=== PATIENT | female | born 1955 | race Caucasian/White ===

== ENCOUNTER 2018-01-29 07:42 | Day surgery (SDC) | payer OTHER, SELFPAY ==
--- NOTE | 2018-01-29 07:42 | DT_ITS ---
This patient was seen during an EMR downtime January 27, 2018 - February 03, 2018. This patient may have a combination of paper and electronic documentation or all paper documentation. All documentation is viewable within the e-chart portion of [facility] for each patient visit.
== END 2018-01-29 09:57 | disposition home or self-care (01) ==
LOC: EN 01-30 11:34
PROVIDERS: Family Provider Family Medicine; PCP Family Medicine; Visit Provider Surgery
PROC: 0DJD8ZZ Inspection of Lower Intestinal Tract, Via Natural or Artificial Opening Endoscopic (ICD-10-PCS; CPT 45378; principal; 2018-01-29 08:55)
DX: Z12.11 Encounter for screening for malignant neoplasm of colon (principal); F41.9 Anxiety disorder, unspecified; F17.200 Nicotine dependence, unspecified, uncomplicated; Z86.010 Personal history of colon polyps; Z79.82 Long term (current) use of aspirin; Z79.899 Other long term (current) drug therapy
CPT/HCPCS: 45378; J7120; J1610

== ENCOUNTER → 2019-05-14 10:45 | Outpatient (CLI) | payer OTHER, SELFPAY ==
--- NOTE | 2019-05-14 11:01 | EKG12_ITS ---
Test Reason : PREOP Blood Pressure : / mmHG Vent. Rate : 061 BPM Atrial Rate : 061 BPM P-R Int : 140 ms QRS Dur : 068 ms QT Int : 372 ms P-R-T Axes : 070 003 054 degrees QTc Int : 374 ms Normal sinus rhythm Low voltage QRS Borderline ECG Confirmed by PASTORA AMARO, HIMANSHU ([id number]), science editor KINGS SANTOS ([id number]) on 05/15/2019 1:28:00 PM Referred By: Vamsi Glass Confirmed By:HIMANSHU GUILLORY MD
[2019-05-14 11:23] LABS: Anion Gap 4 (5-15); BUN 10 mg/dL (7-18); BUN/Creat Ratio 11.2 RATIO (10-20); Calcium,Total 8.5 mg/dL (8.5-10.1); Chloride 109 mmol/L (98-107); Creatinine, Serum 0.89 mg/dL (0.55-1.02); EST Glomerular Filtration Rate 68 mL/min (>60); Est Glom Filt Rate - Afr Amer 82 mL/min (>60); Glucose 134 mg/dL (74-106); Potassium 3.9 mmol/L (3.5-5.1); Sodium Level 142 mmol/L (136-145)
== END ==
PROVIDERS: Family Provider Family Medicine; PCP Family Medicine; Referring Provider Otolaryngology Otolaryngology/Facial Plastic Surgery; Visit Provider Otolaryngology Otolaryngology/Facial Plastic Surgery
DX: Z01.818 Encounter for other preprocedural examination (principal)
CPT/HCPCS: 36415; 80048; 93005

== ENCOUNTER 2021-09-05 12:25 | Day surgery (SDC) | payer BC, SELFPAY ==
--- NOTE | 2021-09-03 16:54 | HP.PCM_ITS ---
History and Physical Date of Admission: 09/05/21 HISTORY AND PHYSICAL [employer] 1955 REFERRING PHYSICIAN: Lorraine White MD ? CHIEF COMPLAINT: Consult (port consultation) ? HPI: The patient is a 65 year old female is referred for consideration of placement of portacath. She has right breast cancer s/p right breast lumpectomy and she will require IV chemotherapy. She will require portacath for this. ? PAST MEDICAL HISTORY Anxiety ? Benign neoplasm of colon ? Cervical strain ? COPD (chronic obstructive pulmonary disease) (HCC) 04/21/2021 Diverticulitis of colon (without mention of hemorrhage)(562.11) ? History of colonoscopy with polypectomy 12/21/2014 tubular adenoma Hyperlipidemia LDL goal <100 12/24/2015 Impaired fasting glucose ? Invasive ductal carcinoma of breast, female, right (HCC) 05/18/2021 Marijuana use ? Shingles 2017 Statin intolerance 12/24/2015 Tobacco use disorder ? PAST SURGICAL HISTORY BREAST LUMPECTOMY HX Right 07/17/2021 BX OF BREAST; INCISIONAL Right 05/18/2021 COLONOSCOP W/ OR W/O BRSH SPEC ? 08/08/2011 Colonoscopy-repeat in -2013 COLONOSCOPY ? 10/11/2014 COLONOSCOPY GEN ANES ? 01/29/2018 CONIZATION OF CERVIX; COLD KNIFE/LASER ? 08/26/1983 EAR SURGERY HX Right? repair a hole in ear drum EXPL LAP W W/WO BX? ? diverticulitis ? Current Outpatient Medications OTC PRODUCT Vit D & Vit C combo sertraline (ZOLOFT) 50 mg tablet Take 1 tablet by mouth once daily. niacin ER (NIASPAN) 500 mg tablet Take 1 tablet by mouth twice daily with meals. cyclobenzaprine (FLEXERIL) 10 mg tablet TAKE ONE TABLET BY MOUTH DAILY NEEDED FOR MUSCLE SPASMS IBUPROFEN ORAL Take 100 mg by mouth every 4 hours as needed. promethazine (PHENERGAN) 25 mg tablet Take 1 tablet by mouth every 6 hours as needed. FOR NAUSEA dexAMETHasone (DECADRON) 4 mg tablet Take 1 tablet by mouth twice daily with meals. Take for 2 days after chemotherapy for nausea cephALEXin (KEFLEX) 500 mg capsule Take 1 capsule by mouth three times daily for 10 days. (Patient not taking: Reported on 08/10/2021 ALLERGIES: Codeine, Pravachol [Pravastatin Sodium], and Zocor [Simvastatin] ? PERSONAL HISTORY: Tobacco Use Smoking status: Current Every Day Smoker ? ? Packs/day: 1.00 ? ? Years: 40.00 ? ? Pack years: 40.00 ? ? Types: Cigarettes ? Smokeless tobacco: Never Used ? Tobacco comment: Pt has cut back to 1/2 pack daily. Vaping Use ? Vaping Use: Never used Substance Use Topics ? Alcohol use: Not Currently ? Drug use: Yes ? ? Frequency: 14.0 times per week ? ? Types: Marijuana FAMILY HISTORY Lipids Mother ? Diabetes Mother ? type 2 Heart Father ? AL Lung Cancer Father ? Lung Cancer Sister ? Leukemia Brother ? Colon Cancer Maternal Grandfather ? Diabetes Paternal Grandmother ? Heart Attack Paternal Grandfather ? No Known Problems Daughter ? No Known Problems Daughter ? ? REVIEW OF SYSTEMS: General - denies fevers, denies anorexia, denies weight loss Cardiovascular - denies chest pain, denies history of AL Pulmonary - denies shortness of breath, denies coughing up blood Gastrointestinal - denies hematemesis Neurological - denies seizures Genitourinary - denies blood in urine Hematological - denies spontaneous/prolonged bleeding Skin - denies nonhealing skin wounds Musculoskeletal - no new muscle/bone pain Endocrine - denies diabetes, no thyroid problems Psychological ? denies hallucinations ? PHYSICAL EXAMINATION: General: The patient is 65 year old female, well nourished, well hydrated in no acute distress. The patient is oriented to time, place, and person. VITALS: Blood pressure 118/60, pulse 98, temperature 36.3 ?C (97.4 ?F), height 157.5 cm (5' 2), weight 57.6 kg (127 lb), SpO2 96 %. Body mass index is 23.23 kg/m?. Head: Normal cephalic, atraumatic Eyes: pupils are equally round, sclera are clear/anicteric, wearing glasses Neck is supple with no tracheal deviation Respiratory: Normal respiratory excursion and pattern. Abdominal exam: benign Extremities: no clubbing, cyanosis or edema. Neuro: non focal Psych: normal mood IMPRESSION: breast cancer, need for IV access for chemotherapy ? PLAN: I have discussed the above with the patient. I have offered placement of portacath I have explained the procedure to the patient. I have explained the risks of the surgery, including but not limited to: infection, bleeding, injury to any blood vessels/nerves, thromboses of blood vessels, line sepsis, injury to lungs (such as pneumothorax or hemothorax and need for chest tube), migration of the catheter, not having any access (inabil ity to place a vascular catheter due to anatomy/etc.), mechanical nonfunctioning of port, infection of port, scar tissue, wound infection, etc. ? the patient understands The patient wishes to proceed. I have answered all questions to the patient?s satisfaction and the patient has no further questions. ? Diagnoses: (C50.411, Z17.1) Malignant neoplasm of upper-outer quadrant of right breast in female, estrogen receptor negative (HCC) (primary encounter diagnosis) (Z45.2) Exhausted vascular access ? Kiesha Wolf MD
[2021-09-05] VITALS (7 sets, daily range): BP systolic 119–136; BP diastolic 61–76; PULSE 71–93; RESP 16; TEMP 35.8–36.6; O2SAT 97–99; BMI 22.8
[2021-09-05] MEDS: Lactated Ringers 1,000 ML 75 ML IV (13:05)
[2021-09-05] MEDS: Lidocaine 1% /Epi 1:100 (20ml) 20 ML Vial (14:55)
--- NOTE | 2021-09-05 15:01 | OP.PCM_ITS ---
Report of Operation Date of Procedure: 09/05/21 Pre-Operative Diagnosis: right breast cancer, need for IV access for chemothera py Post-Operative Diagnosis: same Surgery/Procedure Performed:: placement of permanent indwelling tunneled catheter in left subclavian vein with subcutaneous port Surgeon: Kiesha Wolf Type of Anesthesia: Local MAC Anesthesiologist: Renetta Duarte Estimated Blood Loss (mL): < 10 ml Fluids Replaced: 600 ml RL Description of Procedure: After informed consent was given, the patient was brought to the Operating Room. Appropriate time out protocol was followed. The patient was then placed in the supine position. The patient was then given IV conscious sedation for anesthesia. The patient?s upper chest and neck were then prepped with a surgical skin preparation and sterile surgical drapes were placed. After proper landmarks were ascertained, the skin at the upper left chest area was then infiltrated with 1% xylocaine with epinephrine. A needle trocar was then inserted into the left subclavian vein and there was good aspiration of venous blood. A wire was then threaded into the needle trocar and this was visualized under fluoroscopy to ensure that the wire was in the left subclavian vein. Once this was done, then the needle trocar was removed. A small skin bismark was made with an 11 blade knife at the wire entrance site. The dilator with the introducer sheath attached was then placed over the wire into the left subclavian vein via the Seldinger technique and this was visualized under fluoroscopy. The dilator and sheath were in proper position as visualized by fluoroscopy in real time. The wire and dilator were then removed. The catheter was then threaded into the introducer sheath and was positioned with its tip at the junction of the superior vena cava and the right atrium as visualized under fluoroscopy in real time. I personally reviewed all of the above fluoroscopic images and noted that the positions of the wire and catheter were correct so that the next step could be conducted. The catheter was flushed with a heparin saline mixture prior to placement. A subcutaneous pocket was then created caudad to the catheter insertion site. A transverse skin incision was made after the skin and subcutaneous tissues were infiltrated with local anesthetic. Blunt dissection was then used to create a space large enough for placement of the subcutaneous port. Hemostasis was carefully controlled with electrocautery. The port was sutured to the subcutan eous fascia using vicryl suture at three sites. The catheter was then tunneled into the subcutaneous pocket. The excess catheter was transected. The catheter was then attached to the subcutaneous port using lending activities supervisor?s guidelines. The port was then placed in the subcutaneous pocket and the sutures were ligated. The subdermal incisional sites were reapproximated with interrupted vicryl sutu re. The skin was reapproximated with monocryl suture in a subcuticular fashion. Cavilon and steristrips were used for reinforcement of the skin closure and a sterile opsite dressing was applied. Sponge, needle, and instrument count were verified and correct at the time of skin closure. The patient was brought to the Recovery Room in stable condition Grafts/Implants Used: Power Port Bard Lot [id number], exp 2022-08-25 Complications none noted Admit VTE Documentation VTE Present on Admission: Yes VTE Mechan Device Prophylaxis: SCD's
--- NOTE | 2021-09-05 15:15 | RAD_ITS ---
STUDY: X-RAY CHEST REASON FOR EXAM: Female, 65 years old. Port placement. TECHNIQUE: Single AP portable view of the chest. COMPARISON: None. FINDINGS: A left-sided portacatheter has been placed. The tip is in the midportion of the superior vena cava. Surgical clips are seen in the right axillary region. The lungs are clear and expanded. There is no demonstrated pleural abnormality. Normal size heart. Normal mediastinum and lydia. Normal visualized pulmonary arteries. There is atherosclerotic calcification of the aortic arch with tortuosity. Normal visualized thoracic spine. Normal visualized ribs, clavicles, and shoulders. There is no demonstrated abnormality of the visualized soft tissue structures of the upper abdomen. RAD/CXR for Line Placement IMPRESSION: The tip of the left-sided portacatheter is in the midportion of the superior vena cava. Electronically Signed: Apollo Harper MD at 15:37 EST , Service support ,
--- NOTE | 2021-09-05 15:19 | DCINST_ITS ---
Discharge Instructions Follow Up Care Test Results: Test results from this visit will be discussed in further detail at your follow-up appointment, if applicable. Discharge Plan Admission Attending Provider: Kiesha Wolf Primary Care Provider: Edd Yang Instructions Additional Instructions / Restrictions: Recommended pain control regimen - May take 600 mg ibuprofen (Motrin) and then in 3-4 hours, may take 650 mg acetaminophen (Tylenol), then in 3-4 hours may take 600 mg ibuprofen, then in 3- 4 hours may take 650 mg acetaminophen and so on for 2-3 days May take narcotic pain medication for pain that is not controlled by above and at night for comfort through the night Leave dressings in place May shower, do not scrub in the areas of the dressings as they may unravel. Do not soak - no tub baths/swimming Ice applied to areas of discomfort may help Please call my office, , if any questions or concerns. The nurses providing your chemotherapy will manage the dressings, leave them on. Discharge Orders/Prescriptions Prescriptions: New hydrocodone-acetaminophen 5-325 mg tablet 1 tab PO Q8H 3 Days Qty: 9 RF: 0 No Action niacinamide [Niacin (niacinamide)] 500 MG tablet 500 mg PO BID RF: 0 sertraline [Zoloft] 25 MG tablet 50 mg PO DAILY RF: 0 Calcium 600 + D(3) 600-125 mg-unit Tablet 1 tab PO DAILY RF: 0 Referrals / Follow Up: Edd Yang MD [Primary Care Provider] - Disposition Disposition (needs filled in before D/C Order can be placed): Home, Self Care
== END 2021-09-05 23:59 | disposition home or self-care (01) ==
LOC: SDC 12:36 → AC 12:37
PROVIDERS: PCP Family Medicine; Referring Provider Surgery; Visit Provider Surgery
PROC: (CPT 36561; principal; 2021-09-05 13:45)
DX: Z45.2 Encounter for adjustment and management of vascular access device (principal); J44.9 Chronic obstructive pulmonary disease, unspecified; C50.411 Malignant neoplasm of upper-outer quadrant of right female breast; Z17.1 Estrogen receptor negative status [ER-]; F41.9 Anxiety disorder, unspecified; F17.210 Nicotine dependence, cigarettes, uncomplicated; Z79.899 Other long term (current) drug therapy
CPT/HCPCS: 36561; 00532; 71045; 77001; J7050; J7120; C1788